=== PATIENT | male | born 1995 | race Caucasian/White ===

== ENCOUNTER 2016-06-09 20:27 | Outpatient (CLI) | payer BC | END 2016-06-09 20:28 | disposition EMS.NT | DX: R00.0 Tachycardia, unspecified (principal) ==

== ENCOUNTER 2016-06-16 19:03 | Emergency (ER) | payer OTHER | END 2016-06-16 20:20 | disposition home or self-care (01) | DX: Z77.21 Contact with and (suspected) exposure to potentially hazardous body fluids (principal) ==

== ENCOUNTER 2019-06-15 08:00 | Outpatient (CLI) | payer OTHER, BC ==
--- NOTE | 2019-06-15 16:00 | XRAY Report ---
Reason: PRE-EMPLOYMENT SCREENING Procedure Date: 06/15/2019 Accession Number: [id number] / [id number] Procedure: WCP - Chest 2 View X-Ray CPT Code: 69146 Final Report FULL RESULT: EXAM: CHEST RADIOGRAPHY 2 VIEWS EXAM DATE: 06/15/2019. CLINICAL HISTORY: PRE-EMPLOYMENT SCREENING. COMPARISON: 05/25/2015. TECHNIQUE: PA and lateral views. FINDINGS: Lungs/Pleura: Normal vasculature. The lungs are clear. No pleural fluid or pneumothorax. Mediastinum: Normal cardiac and mediastinal contours. Bones: Normal. IMPRESSION: Normal PA and lateral chest radiography. [facility]
== END 2019-06-15 23:59 | disposition home or self-care (01) ==
LOC: DI.WCP 08:00
PROVIDERS: ATTEND Family Medicine
DX: Z00.00 Encounter for general adult medical examination without abnormal findings (principal)
CPT/HCPCS: 71046

== ENCOUNTER 2021-01-15 10:34 | Outpatient (CLI) | payer OTHER ==
--- NOTE | 2021-01-15 13:45 | MRI Report ---
PROCEDURE: Shoulder RT W/O INDICATIONS: RIGHT SHOULDER PAIN TECHNIQUE: Noncontrast oblique coronal T2 fast spin echo with fat saturation, oblique sagittal T1 spin echo and T2 fast spin echo with fat saturation, axial T1 spin echo and T2 fast spin echo with fat saturation t hrough the shoulder. COMPARISON: None. FINDINGS: Image quality: Excellent. Rotator cuff: Mild T2 signal elevation throughout the supraspinatus and infraspinatus tendons at the humeral insertion sites, indicating tendinopathy. Superimposed low-grade partial thickness intrasubst ance and bursal surface tearing of the mid/posterior supraspinatus tendon at the humeral insertion si te. Infraspinatus, subscapularis, and teres minor tendons are intact. Bones and bursae: No bone marrow contusions or fractures. Mild acromioclavicular joint degeneration. The acromion demonstrates conventional anatomy, without an os acromiale. No pathologic subacromial /subdeltoid bursal fluid is present. Capsule and soft tissues: In the absence of intra-articular contrast, the labrum and glenohumeral li gaments appear intact. The long head of the biceps tendon demonstrates normal location and morpholog y. The rotator interval appears normal, without fibrosis. The coracohumeral ligament is normal in t hickness. IMPRESSION: 1. Supraspinatus and infraspinatus tendinopathy. 2. Superimposed low-grade bursal surface tearing of the supraspinatus. No full-thickness rotator cuff tear. 3. Acromioclavicular joint osteoarthritis. Reviewed by: Lilo Shay MD on 01/15/2021 1:43 PM PST Approved by: Lilo Shay MD on 01/15/2021 1:43 PM PST Station ID: [id number]
== END 2021-01-15 10:35 | disposition home or self-care (01) ==
LOC: DI 10:34
PROVIDERS: ATTEND Orthopaedic Surgery
DX: M75.31 Calcific tendinitis of right shoulder (principal); M75.111 Incomplete rotator cuff tear or rupture of right shoulder, not specified as traumatic; M19.011 Primary osteoarthritis, right shoulder